=== PATIENT | female | born 1995 | race Asian ===

== ENCOUNTER 2017-01-17 10:58 | Inpatient (IN) | payer OTHER ==
[2017-01-17] MEDS ORDERED: OBEPIDURAL* 250 ML ONE (12:55)
[2017-01-17] MEDS ORDERED: Phenylephrine IV* 40 MCG/ML 10 ML SYRINGE IV PUSH PRN ×2 (13:25)
[2017-01-17] MEDS ORDERED: Famotidine TAB* 20 MG PO PRN (13:25)
[2017-01-17] MEDS ORDERED: Sodium Citrate/Citric Acid* 15 ML UDC PO PRN (13:25)
[2017-01-17 13:55] LABS: Hematocrit 37 % (35-47); Hemoglobin 12.2 g/dl (12.0-16.0); Mean Corpuscular HGB Conc 33 g/dl (31-36); Mean Corpuscular Hemoglobin 30 pg (27-31); Mean Corpuscular Volume 89 fL (80-97); Mean Platelet Volume 8 um3 (7.4-10.4); Red Blood Count 4.13 10^6/ul (4.0-5.4); Red Cell Distribution Width 15 % (10.5-15); White Blood Count 18.1 10^3/ul (3.5-10.8)
[2017-01-17] MEDS ORDERED: OBEPIDURAL* 250 ML EPIDURAL SCH (14:00)
[2017-01-17] MEDS ORDERED: Oxytocin in LR* 20 UNITS/1,000 ML BAG IVPB ONE (20:17)
[2017-01-17] MEDS ORDERED: Acetaminophen TAB* 325 MG ONE (20:18)
[2017-01-17] MEDS ORDERED: Acetaminophen TAB* 325 MG PO ONE (20:18)
[2017-01-17] MEDS ORDERED: Oxytocin in LR* 20 UNITS/1,000 ML BAG IVPB SCH (21:00)
[2017-01-18] MEDS ORDERED: Glycerin ADULT SUPP PR PRN (04:42)
[2017-01-18] MEDS ORDERED: Ibuprofen TAB* 600 MG PO PRN (04:42)
[2017-01-18] MEDS ORDERED: Witch Hazel PAD* JAR TOPICAL PRN (04:42)
[2017-01-18] MEDS ORDERED: Dibucaine 1% 28.35 GM TUBE PR PRN (04:42)
[2017-01-18] MEDS ORDERED: Acetaminophen TAB* 325 MG PO PRN (04:42)
[2017-01-18] MEDS ORDERED: Simethicone CHEW TAB* 80 MG PO SCH (08:30)
[2017-01-18] MEDS ORDERED: Varicella Virus Vaccine Live* 0.5 ML VIAL SUBCUT ONE (09:00)
[2017-01-18] MEDS: Docusate CAP* 100 MG PO SCH ×3 (09:01→20:39)
[2017-01-19 08:39] LABS: Hematocrit 34 % (35-47); Hemoglobin 11.1 g/dl (12.0-16.0); Mean Corpuscular HGB Conc 33 g/dl (31-36); Mean Corpuscular Hemoglobin 30 pg (27-31); Mean Corpuscular Volume 90 fL (80-97); Mean Platelet Volume 7 um3 (7.4-10.4); Red Blood Count 3.77 10^6/ul (4.0-5.4); Red Cell Distribution Width 15 % (10.5-15); White Blood Count 18.6 10^3/ul (3.5-10.8)
[2017-01-19] MEDS ORDERED: Ferrous Gluconate TAB* 324 MG TAB PO SCH (09:00)
[2017-01-19] MEDS: Docusate CAP* 100 MG PO SCH ×3 (09:47→20:00)
[2017-01-20] MEDS: Docusate CAP* 100 MG PO SCH (09:59)
[2017-01-20 10:02] VITALS: BP 106/64
== END 2017-01-20 10:57 | disposition home or self-care (01) | DRG 560 ==
LOC: MCHOBOUT 10:58 → MCHOB 11:10
PROVIDERS: ADMIT Midwife; ATTEND Midwife
PROC: 10E0XZZ Delivery of Products of Conception, External Approach (ICD-10-PCS; principal; 2017-01-18)
PROC: 4A1HXCZ Monitoring of Products of Conception, Cardiac Rate, External Approach (ICD-10-PCS; 2017-01-18)
DX: O99.334 Smoking (tobacco) complicating childbirth (principal); O75.2 Pyrexia during labor, not elsewhere classified; Z91.040 Latex allergy status; Z87.442 Personal history of urinary calculi; O99.344 Other mental disorders complicating childbirth; F41.9 Anxiety disorder, unspecified; Z3A.39 39 weeks gestation of pregnancy; Z37.0 Single live birth; O26.03 Excessive weight gain in pregnancy, third trimester; R51 Headache; O75.89 Other specified complications of labor and delivery; O77.0 Labor and delivery complicated by meconium in amniotic fluid; F17.200 Nicotine dependence, unspecified, uncomplicated
CPT/HCPCS: 36415; 85025; 86850; 86900; 86901; A9270-GY; J0290; J1580